=== PATIENT | female | born 1950 | race African-American/Black ===

== ENCOUNTER → 2016-05-25 | Outpatient (CLI) | payer MEDICARE, OTHER ==
--- NOTE | 2016-05-26 16:02 | SLEEP ---
DATE OF STUDY: 05/25/2016 ATTENDING PHYSICIAN: Frankie Stevens MD. The patient is 65 years old who weighs 280 pounds with a BMI of 52. The patient's [place] score was 11. A split night study was performed at [facility]. During the night of the study, the patient spent 421 minutes in bed and slept for 282 minutes with a sleep efficiency of 67%. Sleep latency was 72 minutes, which was prolonged with a REM latency of 115 minutes. Overall, sleep architecture showed normal stage I sleep, increased stage II sleep, normal slow wave and reduced REM sleep. During the initial diagnostic portion of the study, the patient slept for 120 minutes. During this time, there were 25 obstructive apneas, 1 mixed and no central apneas. There were 142 hypopneas. The patient's apnea-hypopnea index was 84 per hour with a REM index of 71 per hour. Supine sleep was not seen during the diagnostic portion. Review of nocturnal oximetry study revealed a mean oxygen saturation 90% with the lowest of 65%. 41% of time oxygen saturation remained between 80% and 89%. EKG monitoring revealed normal sinus rhythm. Average heart rate was 86 beats per minute. PLMS were seen at index of 11 per hour and none caused EEG arousals. The patient met the criteria for CPAP initiation. It was started at 5 cm of water and titrated up to 18 cm of water. At the final pressure, the patient had 31 minutes of sleep. Supine sleep was seen throughout, but no REM sleep was observed. AHI was reduced to 0 per hour and oxygen saturation remained above 91%. The patient used a small-sized full face mask. IMPRESSION: 1. Severe sleep apnea-hypopnea syndrome with an AHI of 84 per hour. 2. Nocturnal hypoxia secondary to obstructive sleep apnea, but resolved with CPAP. 3. Mild PLMS without any significant EEG arousals. This does not need to be treated. RECOMMENDATIONS: 1. CPAP at 18 cm of water completely eliminated patient's sleep apnea and should be used on a nightly basis. The patient used a small-sized full face mask. 2. Follow up in 4-6 weeks to assess compliance with CPAP and to document clinical improvement. 3. Weight loss is strongly advised. 4. Avoid SET PAINTER depressants. 5. Caution regarding driving until symptoms of sleep apnea resolve with the use of CPAP. HEIDI ORANTES MD DR: MARIA TERESA/yeni JOB#: [id number] / [id number] RFANKIE Savage MD
== END | disposition home or self-care (01) ==
LOC: SLPLAB 18:30
PROVIDERS: ATTEND Family Medicine
DX: G47.30 Sleep apnea, unspecified (principal)
CPT/HCPCS: 95810

== ENCOUNTER 2016-12-05 23:16 | Emergency (ER) | payer BC, OTHER ==
[~2016-12-05] VITALS: Ht 157.5 cm; Wt 117.5 kg
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
[2016-12-06] MEDS: IBUPROFEN 400 MG TABLET. PO ONE (00:07)
[2016-12-06] MEDS: HYDROcodone/APAP 5/325MG 1 TAB TABLET PO ONE (00:08)
[2016-12-06] MEDS ORDERED: IBUP-1027 PO (01:26)
[2016-12-06] MEDS ORDERED: ACET1TAB33 PO (01:26)
[2016-12-06 01:30] VITALS: BP 211/86
--- NOTE | 2016-12-06 07:09 | RAD ---
Right shoulder, 3 views, 12/06/2016: History: Shoulder pain, injury No fracture or dislocation is identified. There is moderate degenerative change at the shoulder with narrowing of the subacromial space. Minimal tendinous type calcification is noted along the margin of the greater tuberosity. IMPRESSION: 1. Moderate degenerative change. 2. No acute bony abnormality is detected.
--- NOTE | 2016-12-06 07:10 | RAD ---
Pelvis with right hip, 3 views, 12/06/2016: History: Injury, pain No fracture or dislocation is identified. There is mild narrowing of the hip joints with mild marginal spurring. A 5 cm coarse pelvic calcification on the left is compatible with a uterine fibroid. IMPRESSION: No acute bony abnormality is detected.
== END 2016-12-06 01:32 | disposition home or self-care (01) ==
LOC: ER 23:16
DX: S49.91XA Unspecified injury of right shoulder and upper arm, initial encounter (principal); S79.911A Unspecified injury of right hip, initial encounter; Z88.0 Allergy status to penicillin; X58.XXXA Exposure to other specified factors, initial encounter; Y93.89 Activity, other specified; Y92.89 Other specified places as the place of occurrence of the external cause; Y99.8 Other external cause status
CPT/HCPCS: 73030; 73502; 99284

== ENCOUNTER → 2017-03-22 | Day surgery (SDC) | payer BC ==
[~2017-03-22] MED LIST: HYDROmorphone 2 MG/ML VIAL IV; LIDOCAINE 1% PF 2 ML VIAL. ID; LIDOCAINE 2% PF Vial for OR 5 ML VIAL.; MORPHINE SULFATE 2 MG/ML DISP.SYRIN. IV; ONDANSETRON PF 4 MG/2 ML VIAL. IV; PROCHLORPERAZINE 10 MG/2 ML VIAL. IV; PROPOFOL 40 ML IV; fentaNYL PF VIAL 100 MCG/2 ML VIAL IV
[2017-03-22] MEDS: IV RINGERS,LACTATED 1000ML 1,000 ML IV (08:35)
[2017-03-22 08:50] LABS: POC GLUCOSE 133 mg/dL (70-99)
== END | disposition home or self-care (01) ==
LOC: ENDOS 07:52
DX: K57.30 Diverticulosis of large intestine without perforation or abscess without bleeding (principal); K64.1 Second degree hemorrhoids; I10 Essential (primary) hypertension; E11.9 Type 2 diabetes mellitus without complications; E78.5 Hyperlipidemia, unspecified; D64.9 Anemia, unspecified; Z88.0 Allergy status to penicillin; Z83.3 Family history of diabetes mellitus; Z79.84 Long term (current) use of oral hypoglycemic drugs; Z79.899 Other long term (current) drug therapy; Z82.49 Family history of ischemic heart disease and other diseases of the circulatory system
CPT/HCPCS: 45378; 82962; J2704

== ENCOUNTER → 2017-08-08 | Outpatient (CLI) | payer BC | END | disposition home or self-care (01) | LOC: KCIC DEXA 12:59 | DX: Z12.31 Encounter for screening mammogram for malignant neoplasm of breast (principal); Z13.820 Encounter for screening for osteoporosis; E11.9 Type 2 diabetes mellitus without complications; M81.0 Age-related osteoporosis without current pathological fracture; Z78.0 Asymptomatic menopausal state | CPT/HCPCS: 77063; 77067; 77080 ==

== ENCOUNTER → 2018-04-13 | Outpatient (CLI) | payer BC ==
[2018-03-22 11:00] VITALS: BP 166/79
[~2018-04-13] MED LIST changes: +ACET1TAB33 PO; +AZIT250T6 PO; +BENZ100C PO; +EZET10TA18 PO; +FURO40TA4 PO; +GABA300C18 PO; +HYDR-2761 PO; -HYDROmorphone 2 MG/ML VIAL IV; +IBUP-1027 PO; +LEVO500T59 PO; -LIDOCAINE 1% PF 2 ML VIAL. ID; -LIDOCAINE 2% PF Vial for OR 5 ML VIAL.; +LISI-130 PO; +LISI-334 PO; +METF500T16 PO; -MORPHINE SULFATE 2 MG/ML DISP.SYRIN. IV; -ONDANSETRON PF 4 MG/2 ML VIAL. IV; +PRED20TA PO; -PROCHLORPERAZINE 10 MG/2 ML VIAL. IV; -PROPOFOL 40 ML IV; +SIMV40TA3 PO; -fentaNYL PF VIAL 100 MCG/2 ML VIAL IV
--- NOTE | 2018-04-13 13:14 | RAD ---
Examination: CHEST PA LATERAL History: F/U TO PNEUMONIA, PT STILL WHEEZING, Comparison/Correlation: 03/19/2018, 03/21/2018 two-view chest x-ray exam Findings: PA and lateral views of chest were obtained. Heart size is within normal limits. Pulmonary vasculature is borderline. No focal infiltrate. No pneumothorax. Discoid atelectasis at the left lower lung field noted. No definite effusion. Impression: Borderline pulmonary vasculature congestion. No focal infiltrate. Resolution of previously identified right upper lobe consolidation on 03/24/2013. Electronically signed by: Rosalio Jimenez MD (04/13/2018 1:09 PM) [facility]
== END | disposition home or self-care (01) ==
LOC: RAD 09:48
PROVIDERS: ATTEND Internal Medicine
DX: J18.9 Pneumonia, unspecified organism (principal); Z88.0 Allergy status to penicillin; Z87.891 Personal history of nicotine dependence
CPT/HCPCS: 71046

== ENCOUNTER 2021-04-30 17:32 | Inpatient (IN) | payer BC ==
[~2021-04-30] VITALS: Ht 157.5 cm; Wt 107.4 kg
[~2021-04-30 17:32] MED LIST changes: -EZET10TA18 PO; +EZET10TA20 PO; -LISI-334 PO; +LISI20TA18 PO; +SIMV40TA18 PO; -SIMV40TA3 PO
--- NOTE | 2021-04-30 18:13 | PHYS DOC ---
Past Medical History Past Medical History: Diabetes-Type II, Hypertension Past Surgical History: Knee Replacement Additional Past Surgical Histo: BILATERAL KNEE REPLACEMENT Smoking Status: Former Smoker Alcohol Use: None Drug Use: None General Adult EDM: Chief Complaint: WEAKNESS/GENERALIZED HPI: HPI: Patient is a 70 year old female who presents with just over 24 hours of generalized weakness, generalized fatigue, malaise, bilateral lower extremity cramping. She has chronic lower extremity swelling, which is unchanged today. She denies any acute trauma, fall or injury. She has chronic back pain, but denies any back injury. She has numbness, tingling or focal motor weakness. She denies urinary symptoms, she denies incontinence. She denies abdominal pain. She denies headache, dizziness, vertigo. She denies fevers or chills. She denies chest pain, cough, dyspnea, palpitations. She lives alone, but her son helps her frequently, and she reports that she usually ambulates with a walker, but she is unable to do this today. Patient is unable to ambulate on her own, is unable to bear weight on her own. She does take diuretics. She does not take her supplemental potassium like she is supposed to because she does not like the pills. Review of Systems: Review of Systems: Constitutional: Denies fever or chills. [] Eyes: Denies change in visual acuity. [] HENT: Denies nasal congestion or sore throat. [] Respiratory: Denies cough or shortness of breath. [] Cardiovascular: Denies chest pain. Chronic lower extremity edema, unchanged. GI: Denies abdominal pain, nausea, vomiting, diarrhea : Denies urinary symptoms, denies incontinence. Musculoskeletal: Denies back pain or joint pain. Generalized muscle aches/myalgias Integument: Denies rash. [] Neurologic: Denies headache, focal weakness or sensory changes. Dizziness, vertigo, syncope. Reports generalized, nonfocal weakness. Endocrine: Denies polyuria or polydipsia. [] Lymphatic: Denies swollen glands. [] Psychiatric: Denies depression or anxiety. [] Heart Score: C/O Chest Pain: No Risk Factors: Risk Factors: DM, Current or recent (<one month) smoker, HTN, HLP, family history of CAD, obesity. Risk Scores: Score 0 - 3: 2.5% MACE over next 6 weeks - Discharge Home Score 4 - 6: 20.3% MACE over next 6 weeks - Admit for Clinical Observation Score 7 - 10: 72.7% MACE over next 6 weeks - Early Invasive Strategies Allergies: Allergies: Allergies Coded Allergies Type Severity Reaction Last Updated Verified Penicillins Allergy Intermediate 03/17/17 Yes Physical Exam: PE: Constitutional: Well developed, well nourished, no acute distress, non-toxic appearance. [] HENT: Normocephalic, atraumatic, oropharynx is patent and clear, mucous members are moist. TMs are clear bilaterally. Nares are patent without rhinorrhea epistaxis. Eyes: PERRL, EOMI, conjunctiva normal, no discharge. No nystagmus. Neck: Normal range of motion, no tenderness, supple, no stridor. Achy midline, no JVD. Cardiovascular:Heart rate regular rhythm, 2 radial and +2 posterior tibial pulses bilaterally, warm and well-perfused. Lungs & Thorax: Bilateral breath sounds clear to auscultation, no rales, rhonchi or wheezes Abdomen: Abdomen is soft, obese, nondistended, nontender to palpation, no CVA tenderness, no flank abdominal ecchymoses, no palpable pulsatile mass Skin: Warm, dry, no erythema, no rash. [] Back: No tenderness, no CVA tenderness. [] Extremities: No tenderness, no cyanosis, no clubbing, ROM intact, bilateral, symmetric 1+ lower extremity pitting edema. No calf tenderness. No warmth erythema. No deformity. 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 She is able to plantar flex and dorsiflex. Sensation is grossly intact. No evidence of limb ataxia. She is unable to ambulate. Psychologic: Affect normal, judgement normal, mood normal. She is pleasant and cooperative EKG: EKG: EKG is interpreted at 1816 Rhythm is sinus Rate is 83 bpm Fults is left No STEMI Radiology/Procedures: Radiology/Procedures: IMAGING REPORT Signed PATIENT: LI LYLES ACCOUNT: [id number] : 1950 LOCATION: ER AGE: 70 SEX: F EXAM STATUS: PRE ER ORD. PHYSICIAN: OTTO MENSAH DO REASON: weakness PROCEDURE: CT HEAD WO CONTRAST Exam Date: 04/30/2021 7:[address] HEAD/BRAIN WO Indication: Reason: weakness / Spl. Instructions: / History: . TECHNIQUE: Head CT was performed without intravenous contrast. One or more of the following dose reduction techniques were utilized: *Automated exposure control (AEC) *Adjustment of mA and/or kV according to patient size *Use of iterative reconstruction technique *CT scan done according to ALARA, or ALARA/IMAGE GENTLY FINDINGS: The ventricles and sulci are prominent consistent with cerebral volume loss. Patchy ill-defined low attenuation areas in the subcortical and periventricular white matter bilaterally are consistent with microvascular disease. There is no evidence of acute intracranial hemorrhage, extra-axial collection, mass effect, midline shift, or acute territorial infarct. No lesion of the skull base or the calvarium is seen. The visualized paranasal sinuses, mastoid air cells and orbits are normal in appearance. IMPRESSION: No evidence for acute intracranial abnormality. Volume loss and microvascular disease. Electronically signed by: Shanita Cruz MD (04/30/2021 7:39 PM) [facility] DICTATED and SIGNED BY: SHANITA CRUZ MD DATE: 04/30/21 [id number] Course & Med Decision Making: Course & Med Decision Making Pertinent Labs and Imaging studies reviewed. (See chart for details) The patient is given IV magnesium and p.o. potassium replacement. I discussed the findings, differential diagnosis and plan of care with the patient. Imaging studies are unremarkable for acute life-threatening pathology. I do suspect that electrolyte disturbance may partially explain the etiology of her symptoms. She is unable to walk, she is not able to go home. I recommended hospitalization, she is comfortable with this plan. She is excepted by her primary care physician, Dr. Alvarado. Swapna Disclaimer: Swapna Disclaimer: This electronic medical record was generated, in whole or in part, using a voice recognition dictation system. Departure Departure Impression: Primary Impression: Generalized weakness Additional Impressions: Hypokalemia Hypomagnesemia Unable to ambulate Disposition: ADMITTED INPATIENT Admitting Physician: Khang Alvarado Condition: GUARDED Referrals: KHANG ALVARADO MD (PCP) OTTO MENSAH DO Apr 30, 2021 18:13
[2021-04-30 18:53] LABS: BASO # 0.1 x10^3/uL (0.0-0.2); BASO % 1 % (0-3); EOS # 0.1 x10^3/uL (0.0-0.7); EOS % 2 % (0-3); HEMATOCRIT 36.6 % (36.0-47.0); HEMOGLOBIN 11.5 g/dL (12.0-15.5); LYMPH # 0.9 x10^3/uL (1.0-4.8); LYMPH % 13 % (24-48); MEAN CORPUSCULAR HEMOGLOBIN 25 pg (25-35); MEAN CORPUSCULAR HGB CONC 31 g/dL (31-37); MEAN CORPUSCULAR VOLUME 79 fL (79-100); MONO # 0.8 x10^3/uL (0.0-1.1); MONO % 12 % (0-9); NEUT % 73 % (31-73); PLATELET COUNT 269 x10^3/uL (140-400); RED BLOOD COUNT 4.61 x10^6/uL (3.50-5.40); RED CELL DISTRIBUTION WIDTH 15.8 % (11.5-14.5); WHITE BLOOD COUNT 6.9 x10^3/uL (4.0-11.0)
[2021-04-30 19:06] LABS: CALCIUM 9.3 mg/dL (8.5-10.1); CREATININE 0.9 mg/dL (0.6-1.0); GFR 74.5
[2021-04-30 19:12] LABS: ALBUMIN 3.2 g/dL (3.4-5.0); ALBUMIN/GLOBULIN RATIO 0.6 (1.0-1.7); MAGNESIUM 1.4 mg/dL (1.8-2.4); PHOSPHORUS 3.6 mg/dL (2.6-4.7); TOTAL BILIRUBIN 0.5 mg/dL (0.2-1.0); TOTAL PROTEIN 8.4 g/dL (6.4-8.2)
--- NOTE | 2021-04-30 19:41 | RAD ---
Exam Date: 04/30/2021 7:[address] HEAD/BRAIN WO Indication: Reason: weakness / Spl. Instructions: / History: . TECHNIQUE: Head CT was performed without intravenous contrast. One or more of the following dose re duction techniques were utilized: *Automated exposure control (AEC) *Adjustment of mA and/or kV according to patient size *Use of iterative reconstruction technique *CT scan done according to ALARA, or ALARA/IMAGE GENTLY FINDINGS: The ventricles and sulci are prominent consistent with cerebral volume loss. Patchy ill-defined low attenuation areas in the subcortical and periventricular white matter bilaterally are consistent with microvascular disease. There is no evidence of acute intracranial hemorrhage, extra-axial collecti on, mass effect, midline shift, or acute territorial infarct. No lesion of the skull base or the calv arium is seen. The visualized paranasal sinuses, mastoid air cells and orbits are normal in appearanc e. IMPRESSION: No evidence for acute intracranial abnormality. Volume loss and microvascular disease. Electronically signed by: Parth Cruz MD (04/30/2021 7:39 PM) [facility]
--- NOTE | 2021-04-30 20:18 | RAD ---
Exam Date: 04/30/2021 6:26 PM XR CHEST 1V Indication: Reason: weakness / Spl. Instructions: / History: . Comparison: April 13, 2018 FINDINGS/ IMPRESSION: The cardiac silhouette is enlarged without significant congestion. Mild left basilar subsegmental at electasis and/or scarring is noted. There is no appreciable pleural effusion or pneumothorax. Electronically signed by: Parth Cruz MD (04/30/2021 8:15 PM) [facility]
[2021-04-30 20:26] LABS: BILIRUBIN,URINE NEGATIVE (NEG); CLARITY,URINE CLEAR; COLOR,URINE YELLOW; NITRITE,URINE NEGATIVE (NEG); PH,URINE 5.5 (<5.0-8.0); PROTEIN,URINE 100 mg/dL (NEG-TRACE); UROBILINOGEN,URINE 0.2 mg/dL (0.2 mg/dL)
[2021-04-30 20:27] LABS: BACTERIA,URINE FEW /HPF (0-FEW); RBC,URINE 0 /HPF (0-2); WBC,URINE 0 /HPF (0-4)
[2021-04-30] MEDS ORDERED: POTASSIUM CHLORIDE 20 MEQ TABLET.ER. PO ONE (20:30)
[2021-04-30] MEDS ORDERED: MAGNESIUM SULFATE 1GM 100 ML IV ONE (20:30)
[2021-04-30] MEDS ORDERED: ONDANSETRON PF 4 MG/2 ML VIAL. IVP PRN (21:15)
[2021-04-30] MEDS ORDERED: POTASSIUM CL 20MEQ D5-0.45NACL 1,000 ML IV SCH (22:00)
[2021-04-30 22:14] LABS: INFLUENZA A PATIENT NEGATIVE (NEGATIVE); INFLUENZA B PATIENT NEGATIVE (NEGATIVE)
[2021-04-30 22:30] VITALS: BP 147/78
[2021-04-30] MEDS ORDERED: LOTE2.8D OU (22:53)
[2021-04-30] MEDS ORDERED: BROM5DRO3 OU (22:53)
[2021-04-30] MEDS ORDERED: MOXI3DRO11 OU (22:53)
[2021-04-30] MEDS ORDERED: TIZA-75 PO (22:53)
--- NOTE | 2021-04-30 23:32 | NUR ---
Patient arrived to unit at approx 2210 accompanied by ED RN. Patient resting comfortably on RA. Pt states that she has pain in her groin and bilateral legs when moving. Pt states "I have not been able to walk since yesterday night. Typically I dont even use a cane or walker, but i had to use one last night. I even had to slid down the stairs on my bottom". Pt reports living home alone, since her recently , has been under alot of stress. States that she has a two story home and needs to be able to get around. Her kids do live close but work during the day. Patient has received 3 doses of the Pfizer vaccine. Per patient has not been taking her "water pill" as directed because "I just get so tired of getting up and down to the bathroom all the time". Pt also states "I do not want a diabetic diet, i have type II diabetes so i should be able to eat what i want" Bed in low locked position, call light in reach, bed alarm set. Will continue to monitor.
[2021-05-01] VITALS (9 sets, daily range): BP systolic 75–199; BP diastolic 45–104
--- NOTE | 2021-05-01 01:38 | EKG ---
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
[2021-05-01 07:51] LABS: CALCIUM 8.9 mg/dL (8.5-10.1); CREATININE 0.8 mg/dL (0.6-1.0); GFR 85.3; MAGNESIUM 1.7 mg/dL (1.8-2.4); POTASSIUM 3.4 mmol/L (3.5-5.1)
[2021-05-01] MEDS ORDERED: HYDROcodone/APAP 5/325MG 1 TAB TABLET PO PRN (11:45)
[2021-05-01] MEDS ORDERED: IBUPROFEN 400 MG TABLET. PO PRN (11:45)
[2021-05-01] MEDS ORDERED: predniSONE 10 MG TABLET PO ONE (12:00)
[2021-05-01] MEDS ORDERED: IBUPROFEN 400 MG TABLET. PO ONE (12:00)
[2021-05-01] MEDS ORDERED: POTASSIUM CHLORIDE 20 MEQ TABLET.ER. PO ONE (12:00)
[2021-05-01] MEDS ORDERED: DEXTROSE 50% 25 GM / 50ML DISP.SYRIN. IV PRN (12:00)
[2021-05-01] MEDS: INSULIN LISPRO 300 UNITS/3 ML VIAL. SQ SCH ×2 (12:00→17:46)
--- NOTE | 2021-05-01 12:10 | PDOC ---
Provider Note Date of Service: DATE: 05/01/21 TIME: 12:09 Provider Note Pt seen .H&P dictated.#[id number]. Justifications for Admission Other Justification DIEGO ALVARADO MD May 01, 2021 12:10
[2021-05-01] MEDS: EZETIMIBE 10 MG TABLET. PO SCH (12:17)
[2021-05-01] MEDS: tiZANidine 4 MG TABLET. PO SCH ×2 (12:18→20:10)
[2021-05-01] MEDS: FUROSEMIDE 40 MG TABLET. PO SCH (12:18)
[2021-05-01] MEDS: MAGNESIUM OXIDE 400 MG TABLET PO SCH (12:18)
[2021-05-01] MEDS: LISINOPRIL 20 MG TABLET PO SCH (12:20)
--- NOTE | 2021-05-01 13:07 | HP ---
DATE OF SERVICE: 05/01/2021 ADMIT DATE: 04/30/2021 MEDICAL HISTORY AND PHYSICAL REASON FOR ADMISSION TO THE HOSPITAL: Severe pain, possible gout attack. HISTORY OF PRESENT ILLNESS: The patient is a 70-year-old female. The patient has had severe pain in the right foot, not able to ambulate. The pain was going all the way the leg into the back, she was hard to ambulate, was brought to the hospital and she was given pain medication. When she came in, her potassium was low at 3 and magnesium was low at 1.4, was given IV potassium and magnesium and numbers came down to 3.4 potassium and magnesium 1.7. She is much better now. PAST MEDICAL HISTORY: Diabetes, hypertension, arthritis, anxiety. PAST SURGICAL HISTORY: Bilateral knee replacement. ALLERGIES: PENICILLIN. MEDICATIONS: At home, the patient is on Zetia 10 mg daily, Lasix 40 mg daily, gabapentin 300 mg 3 times daily, lisinopril 40 mg daily, metformin 500 mg twice a day, tizanidine 4 mg daily. She is on eye drops for glaucoma, BromSite 1 drop both daily and moxifloxacin eye drop 3 times a day, right eye and also Inveltys eye drop twice a day. PERSONAL HISTORY: She is a former smoker. Denies alcohol. Denies any street drugs. REVIEW OF SYMPTOMS: Complains of pain in the foot. Hard to put weight on the foot or ambulate. Otherwise, she is able to ambulate with a cane. Rest of the 14-system was reviewed and negative. PHYSICAL EXAMINATION: GENERAL: The patient is slightly in distress secondary to pain; otherwise, she is okay. VITAL SIGNS: Temperature 98, pulse 93, respirations 20, blood pressure 226/113, now 167/88. HEENT: Head is atraumatic. Pupils equal. Oral cavity, no congestion. NECK: Supple. Thyroid not enlarged. JVD not elevated. CHEST: Symmetrical. CARDIOVASCULAR: S1, S2. LUNGS: Clear to auscultation. ABDOMEN: Soft, obese. No mass palpable. EXTERNAL GENITALIA: No Dangelo. RECTUM: Deferred. EXTREMITIES: Bilateral scars of knee replacement. The patient has tenderness of the MTP joint of the right big toe, some flare up with some redness. The patient has a good pulse, dorsalis and posterior. NEUROLOGIC: The patient is moving all extremities. No focal deficits noted. LABORATORY DATA: Shows a white count of 7, hemoglobin 12, platelets are 269. Electrolytes show sodium 147, potassium 3.0, chloride 103, bicarbonate 32, BUN 12, creatinine 0.9, glucose 109, magnesium 1.4. LFTs normal. Urine negative. Serology: Flu test negative. COVID screen negative. CT head negative. Chest x-ray negative. FINAL IMPRESSION: 1. Acute foot pain, probably secondary to acute gout. 2. Hypokalemia and hypomagnesemia. 3. Diabetes. 4. Hypertension. 5. Arthritis. 6. Obesity. PLAN: At this time, the patient is admitted to the hospital. Pain control was given, prednisone and Lortab for pain. Check uric acid level and also strongly recommended to cut down on the patient has been eating lot of red meat lately and counseling was done. She will be able to go home tomorrow if she feels her pain is under control. KLEVER/CIERA DR: Nam TID: [id number]
[2021-05-01] MEDS: GABAPENTIN 300 MG CAPSULE. PO SCH ×2 (15:13→20:10)
[2021-05-01] MEDS: KETOROLAC TROMETHAMINE 0.5% OPHTH SOLUTION 5ML BOTTLE. OU SCH ×3 (15:14→20:10)
[2021-05-01] MEDS: MOXIFLOXACIN 0.5% OPHTH SOLUTION 3ML BOTTLE. OU SCH ×2 (15:58→20:10)
[2021-05-01] MEDS ORDERED: IV NORMAL SALINE 500ML BAG 500 ML IV ONE (16:45)
[2021-05-01] MEDS: metFORMIN 500 MG TABLET PO SCH (17:43)
[2021-05-01] MEDS: LOTEPREDNOL ETABONATE OU SCH (20:14)
[2021-05-02 02:47] VITALS: BP 117/65
[2021-05-02 06:01] LABS: CALCIUM 8.7 mg/dL (8.5-10.1); CREATININE 1.1 mg/dL (0.6-1.0); GFR 59.1; POTASSIUM 4.3 mmol/L (3.5-5.1)
[2021-05-02 06:20] VITALS: BP 128/67
[2021-05-02] MEDS: INSULIN LISPRO 300 UNITS/3 ML VIAL. SQ SCH ×3 (08:00→17:07)
[2021-05-02] MEDS: MAGNESIUM OXIDE 400 MG TABLET PO SCH (08:18)
[2021-05-02] MEDS: GABAPENTIN 300 MG CAPSULE. PO SCH ×3 (08:19→21:08)
[2021-05-02] MEDS: metFORMIN 500 MG TABLET PO SCH ×2 (08:19→17:24)
[2021-05-02] MEDS: tiZANidine 4 MG TABLET. PO SCH (08:19)
[2021-05-02] MEDS: EZETIMIBE 10 MG TABLET. PO SCH (08:19)
[2021-05-02] MEDS: FUROSEMIDE 40 MG TABLET. PO SCH (08:19)
[2021-05-02] MEDS: LISINOPRIL 20 MG TABLET PO SCH ×2 (08:20→09:00)
[2021-05-02] MEDS: KETOROLAC TROMETHAMINE 0.5% OPHTH SOLUTION 5ML BOTTLE. OU SCH ×4 (08:27→21:08)
[2021-05-02] MEDS ORDERED: predniSONE 10 MG TABLET PO ONE (09:00)
[2021-05-02] MEDS: LOTEPREDNOL ETABONATE OU SCH ×2 (09:00→21:00)
[2021-05-02] MEDS ORDERED: POTASSIUM CHLORIDE 20 MEQ TABLET.ER. PO ONE (09:00)
--- NOTE | 2021-05-02 09:00 | NUR ---
Eye drop (inveltys) not given, not avaible in our pharmacy. Family hasn't brought the eye drops, informed on 05/01.
[2021-05-02] MEDS ORDERED: PRED20TA PO (09:38)
[2021-05-02] MEDS ORDERED: POTA-121 PO (09:38)
[2021-05-02] MEDS ORDERED: MAGN400T48 PO (09:38)
[2021-05-02] MEDS: MOXIFLOXACIN 0.5% OPHTH SOLUTION 3ML BOTTLE. OU SCH ×3 (10:40→21:08)
[2021-05-02] MEDS ORDERED: IV NORMAL SALINE 500ML BAG 500 ML IV ONE (10:45)
[2021-05-02] MEDS ORDERED: HYDR-2761 PO (10:48)
--- NOTE | 2021-05-02 10:50 | DISCH ---
DISCHARGE INSTRUCTIONS Condition on Discharge Condition on Discharge: Stable Activity After Discharge Activity Instructions for Disc: Activity as tolerated (Walk with walker) Weight Bearing Status after Di: No restrictions Diet after Discharge Diet after Discharge: Cardiac Diet Texture: Regular Liquid Texture: Thin Liquid Checks after Discharge Checks after discharge: Check blood press - daily, Check blood sugar, ac/hs Contacting the DRRuth after DC Call your doctor for: Concerns you may have Follow-Up Follow up with: in 5 days Treatment/Equipment after DC Adaptive Equipment Issued: None ZACH PEREZ MD May 02, 2021 10:50
--- NOTE | 2021-05-02 11:00 | PDOC ---
IM PROGRESS NOTES- Subjective Subjective She is very sleepy. Rt foot pain is improving. Has bradycardia with rates of 40 to 45/min. Blood pressure is 100/59 mmHg. Objective Vitals/I&O Vital Signs Date Time Temp Pulse Resp B/P (MAP) Pulse Ox O2 Delivery O2 Flow Rate FiO2 05/02/21 09:00 50 100/49 05/02/21 08:00 Room Air 05/02/21 06:20 97.3 16 99 97.3 I & O 05/01/21 05/01/21 05/02/21 15:00 23:00 07:00 Intake Total 360 ml 0 ml Output Total 800 ml 400 ml Balance -440 ml -400 ml Physical Exam Physical Exam General Appearance -she is very sleepy. Chest - decreased breath sounds at bases Heart - S1 and S2 normal Abdomen - soft, non tender Neurological -very sleepy Musculoskeletal - generalized weakness Extremities - no edema Labs Laboratory Tests Test 05/01/21 12:11 05/01/21 17:33 05/01/21 20:39 05/02/21 04:00 Glucose (Fingerstick) 102 mg/dL (70-99) H 161 mg/dL (70-99) H 175 mg/dL (70-99) H Sodium Level 146 mmol/L (136-145) H Potassium Level 4.3 mmol/L (3.5-5.1) Chloride Level 106 mmol/L (98-107) Carbon Dioxide Level 29 mmol/L (21-32) Anion Gap 11 (6-14) Blood Urea Nitrogen 20 mg/dL (7-20) Creatinine 1.1 mg/dL (0.6-1.0) H Estimated GFR (Cockcroft-Gault) 59.1 Glucose Level 159 mg/dL (70-99) H Calcium Level 8.7 mg/dL (8.5-10.1) Test 05/02/21 07:19 Glucose (Fingerstick) 115 mg/dL (70-99) H Laboratory Tests 05/02/21 04:00 Meds Current Medications Medications (Trade) Dose Ordered Sig/Florinda Route PRN Reason Start Time Stop Time Status Last Admin Dose Admin Prednisone (Prednisone) 50 mg 1X ONCE PO 05/01/21 12:00 05/01/21 12:01 DC 05/01/21 12:19 Prednisone (Prednisone) 30 mg 1X ONCE PO 05/02/21 09:00 05/02/21 09:01 DC 05/02/21 08:20 Ibuprofen (Motrin) 800 mg 1X ONCE PO 05/01/21 12:00 05/01/21 12:01 DC 05/01/21 12:19 Potassium Chloride (Klor-Con) 20 meq DAILY ONCE PO 05/02/21 09:00 05/02/21 09:01 DC 05/02/21 08:19 Magnesium Oxide (Magnesium Oxide) 400 mg DAILY PO 05/01/21 12:00 05/02/21 08:18 EZETIMIBE (Zetia) 10 mg DAILY PO 05/01/21 12:00 05/02/21 08:19 Furosemide (Lasix) 40 mg DAILY PO 05/01/21 12:00 05/02/21 08:19 Gabapentin (Neurontin) 300 mg TID PO 05/01/21 14:00 05/02/21 08:19 Lisinopril (Prinivil) 40 mg DAILY PO 05/01/21 12:00 05/01/21 12:20 Metformin HCl (Glucophage) 500 mg BIDWMEALS PO 05/01/21 17:00 05/02/21 08:19 Moxifloxacin HCl (Vigamox) 1 drop TID OU 05/01/21 14:00 05/02/21 10:40 Tizanidine HCl (Zanaflex) 4 mg BID PO 05/01/21 12:00 05/02/21 10:44 DC 05/02/21 08:19 Ketorolac Tromethamine (Acular) 1 drop QID OU 05/01/21 13:00 05/02/21 08:27 Potassium Chloride (Klor-Con) 40 meq 1X ONCE PO 05/01/21 12:00 05/01/21 12:01 DC 05/01/21 12:17 Insulin Human Lispro (HumaLOG) 0-5 UNITS TIDWMEALS SQ 05/01/21 12:00 05/01/21 17:46 Sodium Chloride 500 ml @ 500 mls/hr 1X ONCE IV 05/01/21 16:45 05/01/21 17:44 DC 05/01/21 16:43 Assessment Assessment 1. Acute foot pain, probably secondary to acute gout. 2. Hypokalemia and hypomagnesemia. 3. Diabetes. 4. Hypertension. 5. Arthritis. 6. Obesity. PLAN: At this time, the patient is admitted to the hospital. Pain control was given, prednisone and Lortab for pain. Check uric acid level and also strongly recommended to cut down on the patient has been eating lot of red meat lately and counseling was done. Acute gout improving.Continue prednisone 20 mg daily for 5 days for gout. I will send prescription for hydrocodone from our office computer. Bradycardia and hypotension. Multifactorial. She is also extremely sleepy and this is likely due to tizanidine. I will discontinue tizanidine. Because of the bradycardia and hypotension with blood pressure of 100/49 mmHg I will go ahead and give her 500 cc IV normal saline bolus. Sodium today is 146. Hypokalemia is resolved. Consult brine process operator for evaluation of bradycardia and hypotension. Discontinue lisinopril. It has not been given today. If patient is doing well later this evening and after cardiology evaluation and management will consider to discharge her if she is much better. Otherwise will wait till tomorrow and continue close monitoring. If she gets discharged she will see in 5 days. Discontinue tizanidine and lisinopril. Continue Lasix for now. Continue potassium and magnesium supplements. Plan Plan For more details regarding further plans, please refer to the orders. Justifications for Admission Other Justification ZACH PEREZ MD May 02, 2021 11:00
[2021-05-02 11:01] VITALS: BP 100/49
--- NOTE | 2021-05-02 13:01 | EKG ---
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
[2021-05-02 15:00] VITALS: BP 155/78
--- NOTE | 2021-05-02 17:29 | PDOC2 ---
CONSULT Date of Consult Date of Consult DATE: 05/02/21 TIME: 17:22 Reason for Consult Reason for Consult: Bradycardia Referring Physician Referring Physician: Dr. Brunson Identification/Chief Complaint Chief Complaint Weakness and fatigue Source Source: Chart review, Patient History of Present Illness Reason for Visit: The patient is a 70-year-old female who was admitted on the secondary to 1 to 2 days of increasing weakness and fatigue. The patient also reports some left lower extremity swelling and pain in her right foot. Her potassium level w as decreased at 3.0 which is since been replaced to 4.3. Her magnesium level was decreased at 1.4 which has been replaced to 1.7. Work-up has included CT scan of the head with no evidence of acute intracranial abnormalities. Her initial EKG showed a sinus rhythm with no acute ischemia. We have been asked to evaluate the patient for episodes of sinus bradycardia. Rate is now in the 40s. The patient has been having some 1.5 to 1.6-second pauses with episodes of sinus arrhythmias. She reports feeling significantly better than on admission with her weakness and fatigue greatly improved. In addition she has been on tizanidine and this has been held today. She reports no clear history of coronary disease, congestive heart failure or cardiac arrhythmias although she states that in the past she was seen at least once a [facility] by cardiology. Past Medical History Cardiovascular: HTN, Hyperlipidemia Pulmonary: Bronchitis Rheumatologic: Gout Endocrine: Diabetes Past Surgical History Past Surgical History: Total knee replacement Family History Family History: Hypertension Social History Quit ALCOHOL: none Current Problem List Problem List Problems Medical Problems: (1) Generalized weakness Status: Acute (2) Hypokalemia Status: Acute (3) Hypomagnesemia Status: Acute (4) Unable to ambulate Status: Acute (5) Weakness Status: Acute Current Medications Current Medications Current Medications Potassium Chloride (Klor-Con) 40 meq 1X ONCE PO Last administered on 04/30/21at 20:36; Start 04/30/21 at 20:30; Stop 04/30/21 at 20:31; Status DC Magnesium Sulfate/ Dextrose 100 ml @ 100 mls/hr 1X ONCE IV Last administered on 04/30/21at 20:36; Start 04/30/21 at 20:30; Stop 04/30/21 at 21:29; Status DC Ondansetron HCl (Zofran) 4 mg PRN Q8HRS PRN IVP NAUSEA/VOMITING; Start 04/30/21 at 21:15; Stop 05/01/21 at 21:14; Status DC Potassium Chloride/Dextrose/ Sod Cl 1,000 ml @ 75 mls/hr [id number] IV Last administered on 04/30/21at 22:46; Start 04/30/21 at 22:00; Stop 05/01/21 at 11:19; Status DC Prednisone (Prednisone) 50 mg 1X ONCE PO Last administered on 05/01/21at 12:19; Start 05/01/21 at 12:00; Stop 05/01/21 at 12:01; Status DC Prednisone (Prednisone) 30 mg 1X ONCE PO Last administered on 05/02/21at 08:20; Start 05/02/21 at 09:00; Stop 05/02/21 at 09:01; Status DC Acetaminophen/ Hydrocodone Bitart (Lortab 5/325) 1 tab PRN Q4HRS PRN PO PAIN; Start 05/01/21 at 11:45 Ibuprofen (Motrin) 800 mg 1X ONCE PO Last administered on 05/01/21at 12:19; Start 05/01/21 at 12:00; Stop 05/01/21 at 12:01; Status DC Ibuprofen (Motrin) 400 mg PRN BID PRN PO INFLAMMATION; Start 05/01/21 at 11:45 Potassium Chloride (Klor-Con) 20 meq DAILY ONCE PO Last administered on 05/02/21at 08:19; Start 05/02/21 at 09:00; Stop 05/02/21 at 09:01; Status DC Magnesium Oxide (Magnesium Oxide) 400 mg DAILY PO Last administered on 05/02/21at 08:18; Start 05/01/21 at 12:00 EZETIMIBE (Zetia) 10 mg DAILY PO Last administered on 05/02/21at 08:19; Start 05/01/21 at 12:00 Furosemide (Lasix) 40 mg DAILY PO Last administered on 05/02/21at 08:19; Start 05/01/21 at 12:00 Gabapentin (Neurontin) 300 mg TID PO Last administered on 05/02/21at 13:28; Start 05/01/21 at 14:00 Lisinopril (Prinivil) 40 mg DAILY PO Last administered on 05/01/21at 12:20; Start 05/01/21 at 12:00; Stop 05/02/21 at 11:02; Status DC Metformin HCl (Glucophage) 500 mg BIDWMEALS PO Last administered on 05/02/21at 08:19; Start 05/01/21 at 17:00 Moxifloxacin HCl (Vigamox) 1 drop TID OU Last administered on 05/02/21at 15:52; Start 05/01/21 at 14:00 Tizanidine HCl (Zanaflex) 4 mg BID PO Last administered on 05/02/21at 08:19; Start 05/01/21 at 12:00; Stop 05/02/21 at 10:44; Status DC Ketorolac Tromethamine (Acular) 1 drop QID OU Last administered on 05/02/21at 13:28; Start 05/01/21 at 13:00 Non-Formulary Medication (Loteprednol Etabonate (Inveltys)) 1 drop BID OU ; Start 05/01/21 at 21:00; Status UNV Potassium Chloride (Klor-Con) 40 meq 1X ONCE PO Last administered on 05/01/21at 12:17; Start 05/01/21 at 12:00; Stop 05/01/21 at 12:01; Status DC Insulin Human Lispro (HumaLOG) 0-5 UNITS TIDWMEALS SQ Last administered on 05/02/21at 17:07; Start 05/01/21 at 12:00 Dextrose (Dextrose 50%-Water Syringe) 12.5 gm PRN Q15MIN PRN IV SEE COMMENTS; Start 05/01/21 at 12:00 Sodium Chloride 500 ml @ 500 mls/hr 1X ONCE IV Last administered on 05/01/21at 16:43; Start 05/01/21 at 16:45; Stop 05/01/21 at 17:44; Status DC Sodium Chloride 500 ml @ 0 mls/hr 1X ONCE IV Last administered on 05/02/21at 11:02; Start 05/02/21 at 10:45; Stop 05/02/21 at 10:52; Status DC Active Scripts Active Hydrocodone-Apap 5-325 (Hydrocodone Bit/Acetaminophen) 1 Tab Tablet 1 Tab PO PRN Q6-8HRS PRN 7 Days Prednisone 20 Mg Tablet 1 Tab PO DAILY Klor-Con M20 (Potassium Chloride) 20 Meq Tab.er.prt 20 Meq PO DAILY 30 Days Magnesium Oxide 400 Mg Tablet 400 Mg PO DAILY 30 Days Reported Inveltys (Loteprednol Etabonate) 2.8 Ml Drops.susp 1 Drop OU BID Bromsite (Bromfenac Sodium) 5 Ml Drops 1 Drop OU DAILY Moxifloxacin (Moxifloxacin HCl) 3 Ml Drops 1 Drop OU TID Zetia (Ezetimibe) 10 Mg Tablet 1 Tab PO DAILY Gabapentin (Gabapentin) 300 Mg Capsule 300 Mg PO TID Furosemide 40 Mg Tablet 40 Mg PO DAILY Metformin Hcl 500 Mg Tablet 500 Mg PO BIDWMEALS Allergies Allergies: Coded Allergies: Penicillins (Verified Allergy, Intermediate, 03/17/17) ROS General: YES: Fatigue, Malaise Respiratory: YES: SOB with excertion Physical Exam General: Other (Fatigue but no distress.) Lungs: Other (Minimally decreased breath sounds) Heart: Regular rate Abdomen: Normal bowel sounds Vitals VITALS Vital Signs Date Time Temp Pulse Resp B/P (MAP) Pulse Ox O2 Delivery O2 Flow Rate FiO2 05/02/21 15:00 98.0 68 16 155/78 (103) 99 Room Air 98.0 Labs Labs Laboratory Tests Test 04/30/21 18:40 04/30/21 19:57 04/30/21 21:45 05/01/21 07:10 White Blood Count 6.9 x10^3/uL (4.0-11.0) Red Blood Count 4.61 x10^6/uL (3.50-5.40) Hemoglobin 11.5 g/dL (12.0-15.5) Hematocrit 36.6 % (36.0-47.0) Mean Corpuscular Volume 79 fL (79-100) Mean Corpuscular Hemoglobin 25 pg (25-35) Mean Corpuscular Hemoglobin Concent 31 g/dL (31-37) Red Cell Distribution Width 15.8 % (11.5-14.5) Platelet Count 269 x10^3/uL (140-400) Neutrophils (%) (Auto) 73 % (31-73) Lymphocytes (%) (Auto) 13 % (24-48) Monocytes (%) (Auto) 12 % (0-9) Eosinophils (%) (Auto) 2 % (0-3) Basophils (%) (Auto) 1 % (0-3) Neutrophils # (Auto) 5.0 x10^3/uL (1.8-7.7) Lymphocytes # (Auto) 0.9 x10^3/uL (1.0-4.8) Monocytes # (Auto) 0.8 x10^3/uL (0.0-1.1) Eosinophils # (Auto) 0.1 x10^3/uL (0.0-0.7) Basophils # (Auto) 0.1 x10^3/uL (0.0-0.2) Sodium Level 147 mmol/L (136-145) 144 mmol/L (136-145) Potassium Level 3.0 mmol/L (3.5-5.1) 3.4 mmol/L (3.5-5.1) Chloride Level 103 mmol/L (98-107) 103 mmol/L (98-107) Carbon Dioxide Level 32 mmol/L (21-32) 32 mmol/L (21-32) Anion Gap 12 (6-14) 9 (6-14) Blood Urea Nitrogen 12 mg/dL (7-20) 12 mg/dL (7-20) Creatinine 0.9 mg/dL (0.6-1.0) 0.8 mg/dL (0.6-1.0) Estimated GFR (Cockcroft-Gault) 74.5 85.3 BUN/Creatinine Ratio 13 (6-20) Glucose Level 103 mg/dL (70-99) 131 mg/dL (70-99) Calcium Level 9.3 mg/dL (8.5-10.1) 8.9 mg/dL (8.5-10.1) Phosphorus Level 3.6 mg/dL (2.6-4.7) Magnesium Level 1.4 mg/dL (1.8-2.4) 1.7 mg/dL (1.8-2.4) Total Bilirubin 0.5 mg/dL (0.2-1.0) Aspartate Amino Transf (AST/SGOT) 6 U/L (15-37) Alanine Aminotransferase (ALT/SGPT) 9 U/L (14-59) Alkaline Phosphatase 104 U/L (46-116) Creatine Kinase 58 U/L (26-192) Troponin I High Sensitivity 32 ng/L (4-50) ET-Ikb-U-Type Natriuretic Peptide 1741 pg/mL (0-124) Total Protein 8.4 g/dL (6.4-8.2) Albumin 3.2 g/dL (3.4-5.0) Albumin/Globulin Ratio 0.6 (1.0-1.7) Urine Collection Type U cath Urine Color Yellow Urine Clarity Clear Urine pH 5.5 (<5.0-8.0) Urine Specific [place] >=1.030 (1.000-1.030) Urine Protein 100 mg/dL (NEG-TRACE) Urine Glucose (UA) Negative mg/dL (NEG) Urine Ketones (Stick) Negative mg/dL (NEG) Urine Blood Negative (NEG) Urine Nitrite Negative (NEG) Urine Bilirubin Negative (NEG) Urine Urobilinogen Dipstick 0.2 mg/dL (0.2 mg/dL) Urine Leukocyte Esterase Negative (NEG) Urine RBC 0 /HPF (0-2) Urine WBC 0 /HPF (0-4) Urine Squamous Epithelial Cells Mod /LPF Urine Bacteria Few /HPF (0-FEW) Urine Mucus Mod /LPF Coronavirus (COVID-19)(PCR) Not detected (NOT DETECTD) Influenza Type A Antigen Negative (NEGATIVE) Influenza Type B Antigen Negative (NEGATIVE) SARS-CoV-2 Antigen (Rapid) Negative (NEGATIVE) Uric Acid 6.3 mg/dL (2.6-6.0) Test 05/01/21 12:11 05/01/21 17:33 05/01/21 20:39 05/02/21 04:00 Glucose (Fingerstick) 102 mg/dL (70-99) 161 mg/dL (70-99) 175 mg/dL (70-99) Sodium Level 146 mmol/L (136-145) Potassium Level 4.3 mmol/L (3.5-5.1) Chloride Level 106 mmol/L (98-107) Carbon Dioxide Level 29 mmol/L (21-32) Anion Gap 11 (6-14) Blood Urea Nitrogen 20 mg/dL (7-20) Creatinine 1.1 mg/dL (0.6-1.0) Estimated GFR (Cockcroft-Gault) 59.1 Glucose Level 159 mg/dL (70-99) Calcium Level 8.7 mg/dL (8.5-10.1) Test 05/02/21 07:19 2/27/22 11:28 05/02/21 16:46 Glucose (Fingerstick) 115 mg/dL (70-99) 138 mg/dL (70-99) 164 mg/dL (70-99) Laboratory Tests Test 05/01/21 17:33 05/01/21 20:39 05/02/21 04:00 05/02/21 07:19 Glucose (Fingerstick) 161 mg/dL (70-99) 175 mg/dL (70-99) 115 mg/dL (70-99) Sodium Level 146 mmol/L (136-145) Potassium Level 4.3 mmol/L (3.5-5.1) Chloride Level 106 mmol/L (98-107) Carbon Dioxide Level 29 mmol/L (21-32) Anion Gap 11 (6-14) Blood Urea Nitrogen 20 mg/dL (7-20) Creatinine 1.1 mg/dL (0.6-1.0) Estimated GFR (Cockcroft-Gault) 59.1 Glucose Level 159 mg/dL (70-99) Calcium Level 8.7 mg/dL (8.5-10.1) Test 05/02/21 11:28 05/02/21 16:46 Glucose (Fingerstick) 138 mg/dL (70-99) 164 mg/dL (70-99) Images Images CT scan of the head with no acute intracranial abnormalities. Assessment/Plan Assessment/Plan 1. Weakness and fatigue. Patient is significantly improved on present treatment. She is attempting to gradually increase her activity. 2. Right foot pain. Possibly gout with treatment as per the primary service. 3. Mild sinus bradycardia. Some episodes of sinus arrhythmias. Pauses up to approximately 1.2 seconds. Potassium magnesium have been replaced. Tizanidine has been held. In this setting I would monitor the patient overnight to exclude more significant bradycardia. Upon discharge tomorrow if he remained stable overnight we will place an outpatient monitor. 4. Hypokalemia. Replaced to a level of 4.3 today. 5. Hypomagnesemia. Replaced to a level of 1.7 today. 6. Hypertension. Patient is hypotensive today. Lisinopril is being held. 7. Diabetes mellitus. As per the primary physician. LOKESH HERRERA MD May 02, 2021 17:29
[2021-05-02 19:10] VITALS: BP 178/88
[2021-05-02 22:41] VITALS: BP 150/72
[2021-05-03 02:49] VITALS: BP 138/58
[2021-05-03 05:14] LABS: BASO % 0 % (0-3); EOS # 0.1 x10^3/uL (0.0-0.7); EOS % 1 % (0-3); HEMATOCRIT 34.3 % (36.0-47.0); HEMOGLOBIN 10.8 g/dL (12.0-15.5); LYMPH # 1.6 x10^3/uL (1.0-4.8); LYMPH % 17 % (24-48); MEAN CORPUSCULAR HEMOGLOBIN 25 pg (25-35); MEAN CORPUSCULAR HGB CONC 31 g/dL (31-37); MEAN CORPUSCULAR VOLUME 80 fL (79-100); MONO # 0.7 x10^3/uL (0.0-1.1); MONO % 8 % (0-9); NEUT # 6.8 x10^3/uL (1.8-7.7); NEUT % 74 % (31-73); PLATELET COUNT 277 x10^3/uL (140-400); RED BLOOD COUNT 4.29 x10^6/uL (3.50-5.40); RED CELL DISTRIBUTION WIDTH 15.8 % (11.5-14.5); WHITE BLOOD COUNT 9.1 x10^3/uL (4.0-11.0)
[2021-05-03 05:21] LABS: CALCIUM 8.9 mg/dL (8.5-10.1); CREATININE 0.9 mg/dL (0.6-1.0); GFR 74.5; POTASSIUM 3.8 mmol/L (3.5-5.1)
[2021-05-03 07:00] VITALS: BP 160/72
[2021-05-03] MEDS: INSULIN LISPRO 300 UNITS/3 ML VIAL. SQ SCH (08:00)
[2021-05-03] MEDS: metFORMIN 500 MG TABLET PO SCH (08:53)
[2021-05-03] MEDS: FUROSEMIDE 40 MG TABLET. PO SCH (08:54)
[2021-05-03] MEDS: MAGNESIUM OXIDE 400 MG TABLET PO SCH (08:54)
[2021-05-03] MEDS: EZETIMIBE 10 MG TABLET. PO SCH (08:54)
[2021-05-03] MEDS: GABAPENTIN 300 MG CAPSULE. PO SCH (08:54)
[2021-05-03] MEDS: LOTEPREDNOL ETABONATE OU SCH (08:55)
[2021-05-03] MEDS: KETOROLAC TROMETHAMINE 0.5% OPHTH SOLUTION 5ML BOTTLE. OU SCH (08:59)
[2021-05-03] MEDS: MOXIFLOXACIN 0.5% OPHTH SOLUTION 3ML BOTTLE. OU SCH (08:59)
--- NOTE | 2021-05-03 09:32 | PDOC ---
PROGRESS NOTES Date of Service: DATE: 05/03/21 TIME: 09:29 Subjective Subjective feels good ,want to go home now Objective Objective Vital Signs Date Time Temp Pulse Resp B/P (MAP) Pulse Ox O2 Delivery O2 Flow Rate FiO2 05/03/21 07:00 97.2 61 20 160/72 (101) 98 Room Air 97.2 Intake and Output 05/03/21 07:00 Intake Total 860 ml Output Total 700 ml Balance 160 ml Intake Oral 860 ml Output Urine Total 700 ml # Bowel Movements 1 Physical Exam Abdomen: Normal bowel sounds Heart: Regular rate General: Oriented X3, Other (Fatigue but no distress.) Lungs: Clear to auscultation MUSCULOSKELETAL: No deformity Neuro: Normal speech Psych/Mental Status: Mental status NL Skin: No rashes Diagnosis Problem List Problems Medical Problems: (1) Generalized weakness Status: Acute (2) Hypokalemia Status: Acute (3) Hypomagnesemia Status: Acute (4) Unable to ambulate Status: Acute (5) Weakness Status: Acute Assessment Assessment 1. Acute foot pain, probably secondary to acute gout. 2. Hypokalemia and hypomagnesemia. 3. Diabetes. 4. Hypertension. 5. Arthritis. 6. Obesity. PLAN: bradycardia resolved may be due to medications, Tizanidine , spoke with cardiology ,ok to go home , will do out pt ho;ter monitor gout attack resolved home today.. labs good. Plan Plan of Care Problems Medical Problems: (1) Generalized weakness Status: Acute (2) Hypokalemia Status: Acute (3) Hypomagnesemia Status: Acute (4) Unable to ambulate Status: Acute (5) Weakness Status: Acute Comment Review of Relevant I have reviewed the following items lyssa (where applicable) has been applied. Labs Laboratory Tests Test 05/02/21 11:28 05/02/21 16:46 05/02/21 20:57 05/03/21 03:40 Glucose (Fingerstick) 138 mg/dL (70-99) 164 mg/dL (70-99) 95 mg/dL (70-99) White Blood Count 9.1 x10^3/uL (4.0-11.0) Red Blood Count 4.29 x10^6/uL (3.50-5.40) Hemoglobin 10.8 g/dL (12.0-15.5) Hematocrit 34.3 % (36.0-47.0) Mean Corpuscular Volume 80 fL (79-100) Mean Corpuscular Hemoglobin 25 pg (25-35) Mean Corpuscular Hemoglobin Concent 31 g/dL (31-37) Red Cell Distribution Width 15.8 % (11.5-14.5) Platelet Count 277 x10^3/uL (140-400) Neutrophils (%) (Auto) 74 % (31-73) Lymphocytes (%) (Auto) 17 % (24-48) Monocytes (%) (Auto) 8 % (0-9) Eosinophils (%) (Auto) 1 % (0-3) Basophils (%) (Auto) 0 % (0-3) Neutrophils # (Auto) 6.8 x10^3/uL (1.8-7.7) Lymphocytes # (Auto) 1.6 x10^3/uL (1.0-4.8) Monocytes # (Auto) 0.7 x10^3/uL (0.0-1.1) Eosinophils # (Auto) 0.1 x10^3/uL (0.0-0.7) Basophils # (Auto) 0.0 x10^3/uL (0.0-0.2) Sodium Level 143 mmol/L (136-145) Potassium Level 3.8 mmol/L (3.5-5.1) Chloride Level 106 mmol/L (98-107) Carbon Dioxide Level 31 mmol/L (21-32) Anion Gap 6 (6-14) Blood Urea Nitrogen 23 mg/dL (7-20) Creatinine 0.9 mg/dL (0.6-1.0) Estimated GFR (Cockcroft-Gault) 74.5 Glucose Level 109 mg/dL (70-99) Calcium Level 8.9 mg/dL (8.5-10.1) Thyroid Stimulating Hormone (TSH) 0.184 uIU/mL (0.358-3.74) Test 05/03/21 07:37 Glucose (Fingerstick) 105 mg/dL (70-99) Medications Current Medications Sodium Chloride 500 ml @ 0 mls/hr 1X ONCE IV Last administered on 05/02/21at 11:02; Start 05/02/21 at 10:45; Stop 05/02/21 at 10:52; Status DC Vitals/I & O Vital Sign - Last 24 Hours 05/02/21 05/02/21 05/02/21 05/02/21 11:01 15:00 19:10 19:37 Temp 97.4 98.0 97.5 97.4 98.0 97.5 Pulse 50 68 68 Resp 16 16 18 B/P (MAP) 100/49 (66) 155/78 (103) 178/88 (118) Pulse Ox 94 99 99 O2 Delivery Room Air Room Air Room Air Room Air 05/02/21 05/03/21 05/03/21 22:41 02:49 07:00 Temp 97.5 97.5 97.2 97.5 97.5 97.2 Pulse 70 74 61 Resp 16 16 20 B/P (MAP) 150/72 (98) 138/58 (84) 160/72 (101) Pulse Ox 98 100 98 O2 Delivery Room Air Room Air Room Air Intake and Output 05/02/21 05/02/21 05/03/21 15:00 23:00 07:00 Intake Total 360 ml 500 ml 0 ml Output Total 200 ml 500 ml Balance 160 ml 0 ml 0 ml Justifications for Admission Other Justification DIEGO ALVARADO MD May 03, 2021 09:32
--- NOTE | 2021-05-03 10:40 | PDOC ---
LAURI BARGER GENERAL EDUCATION PROFESSOR 05/03/21 1040: CARDIO Progress Notes Date and Time Date of Service 05/03/21 Time of Evaluation 1030 Subjective Subjective: No Chest Pain, No shortness of breath, No Palpitations, No Dizziness, Other (ready to be discharged ) Vitals Vitals Vital Signs Date Time Temp Pulse Resp B/P (MAP) Pulse Ox O2 Delivery O2 Flow Rate FiO2 05/03/21 07:00 97.2 61 20 160/72 (101) 98 Room Air 97.2 Weight Weight [ ] Input and Output Intake and Output Intake and Output 05/03/21 07:00 Intake Total 860 ml Output Total 700 ml Balance 160 ml Intake Oral 860 ml Output Urine Total 700 ml # Bowel Movements 1 Laboratory Labs Laboratory Tests Test 05/02/21 11:28 05/02/21 16:46 05/02/21 20:57 05/03/21 03:40 Glucose (Fingerstick) 138 mg/dL (70-99) 164 mg/dL (70-99) 95 mg/dL (70-99) White Blood Count 9.1 x10^3/uL (4.0-11.0) Red Blood Count 4.29 x10^6/uL (3.50-5.40) Hemoglobin 10.8 g/dL (12.0-15.5) Hematocrit 34.3 % (36.0-47.0) Mean Corpuscular Volume 80 fL (79-100) Mean Corpuscular Hemoglobin 25 pg (25-35) Mean Corpuscular Hemoglobin Concent 31 g/dL (31-37) Red Cell Distribution Width 15.8 % (11.5-14.5) Platelet Count 277 x10^3/uL (140-400) Neutrophils (%) (Auto) 74 % (31-73) Lymphocytes (%) (Auto) 17 % (24-48) Monocytes (%) (Auto) 8 % (0-9) Eosinophils (%) (Auto) 1 % (0-3) Basophils (%) (Auto) 0 % (0-3) Neutrophils # (Auto) 6.8 x10^3/uL (1.8-7.7) Lymphocytes # (Auto) 1.6 x10^3/uL (1.0-4.8) Monocytes # (Auto) 0.7 x10^3/uL (0.0-1.1) Eosinophils # (Auto) 0.1 x10^3/uL (0.0-0.7) Basophils # (Auto) 0.0 x10^3/uL (0.0-0.2) Sodium Level 143 mmol/L (136-145) Potassium Level 3.8 mmol/L (3.5-5.1) Chloride Level 106 mmol/L (98-107) Carbon Dioxide Level 31 mmol/L (21-32) Anion Gap 6 (6-14) Blood Urea Nitrogen 23 mg/dL (7-20) Creatinine 0.9 mg/dL (0.6-1.0) Estimated GFR (Cockcroft-Gault) 74.5 Glucose Level 109 mg/dL (70-99) Calcium Level 8.9 mg/dL (8.5-10.1) Thyroid Stimulating Hormone (TSH) 0.184 uIU/mL (0.358-3.74) Test 05/03/21 07:37 Glucose (Fingerstick) 105 mg/dL (70-99) Physical Exam HEENT: Neck Supple W Full Motion Chest: Symmetric LUNGS: Clear to Auscultation Heart: RRR Abdomen: Soft N/T Extremities: Other (trace bilateral LE edema ) Neurology: alert, oriented, follow commands Assessment Assessment 1. Weakness, right foot pain. Treated as gout 2. Bradycardia; sinus. Lowest 41 overnight. No pauses. Tizanidine has been held. Improved. Tele also noted with few brief bursts of PSVT. Otherwise, is SR.. 3. Hypokalemia, hypomagnesemia; replaced 4. Hypertension; lisinopril held with low-end BP. no hypertensive. 5. Diabetes, II Recommendations Resume lisinopril at lower dose. Outpatient event monitor as arranged Outpatient echocardiogram to assess LV systolic function Follow up in our office with Dr. Herrera as scheduled. Justicifation of Admission Dx: Justifications for Admission: Justification of Admission Dx: Yes Comments: bradycardia Weakness Hypotension LOKESH HERRERA MD 05/04/21 1104: CARDIO Progress Notes Assessment Assessment Patient seen and examined on 05/03/2021. She is feeling better. I agree with our nurse practitioners assessment and plan. Weakness, right foot pain. Treated as gout Bradycardia; sinus. Lowest 41 overnight. No pauses. Tizanidine has been held. Improved. Tele also noted with few brief bursts of PSVT. Otherwise, is SR. We will continue present medications and follow-up as an outpatient.. Hypokalemia, hypomagnesemia; replaced Hypertension; lower dose lisinopril. Diabetes, II. as per the primary service. LAURI BARGER APRN May 03, 2021 10:40 LOKESH HERRERA MD May 04, 2021 11:04
[2021-05-03] MEDS ORDERED: LISI20TA18 PO (12:21)
--- NOTE | 2021-05-03 12:31 | NUR ---
SS following for discharge planning. SS reviewed pt chart and discussed with pt RN. Pt is from home and is currently on room air. COVID19 negative. PT/OT recommended residential unit. Pt requesting to return to home. Discharge order on the chart for home with self care.
--- NOTE | 2021-05-03 12:40 | NUR ---
Discharge Note: FREEMAN LYLES [address] [place] [address] Discharge instructions and discharge home medications reviewed with Patient and a copy given. All questions have been answered and understanding verbalized. The following instructions and handouts were given: discharge instructions, med list, hypokalemia education, hypomagnesemia education, bradycardia education, follow ups. Discontinued lines and drains: Peripheral IV intact. Patient discharged to Home or Self Care with Family Member via Wheelchair at 1240.
== END 2021-05-03 12:36 | disposition home or self-care (01) | DRG 554 ==
LOC: ER 17:32 → 6 SOUTH 20:18
PROVIDERS: ADMIT Internal Medicine; ATTEND Internal Medicine
DX: M10.9 Gout, unspecified (principal); Z68.41 Body mass index [BMI] 40.0-44.9, adult; I47.1 Supraventricular tachycardia; E87.6 Hypokalemia; Z20.822 Contact with and (suspected) exposure to COVID-19; E11.9 Type 2 diabetes mellitus without complications; E66.9 Obesity, unspecified; E78.5 Hyperlipidemia, unspecified; E83.42 Hypomagnesemia; G89.29 Other chronic pain; I10 Essential (primary) hypertension; Z96.653 Presence of artificial knee joint, bilateral; F41.9 Anxiety disorder, unspecified; R53.81 Other malaise; I95.9 Hypotension, unspecified; M54.9 Dorsalgia, unspecified; M79.671 Pain in right foot; I49.8 Other specified cardiac arrhythmias; Z88.0 Allergy status to penicillin; Z82.49 Family history of ischemic heart disease and other diseases of the circulatory system; Z87.891 Personal history of nicotine dependence
CPT/HCPCS: 36415; 70450; 71045; 80048; 80053; 81001; 82550; 82962; 83735; 83880; 84100; 84443; 84484; 84550; 85025; 87428; 93005; 96365; J1815; J3475; J3480; J7040; J7512; U0003; 97116-GP; 97535-GO; 99285-25; G0378

== ENCOUNTER → 2021-05-31 | Outpatient (CLI) | payer BC ==
[2021-05-03 07:00] VITALS: BP 160/72
[~2021-05-31] MED LIST changes: +BROM5DRO3 OU; +LOTE2.8D OU; +MAGN400T48 PO; +MOXI3DRO11 OU; +POTA-121 PO; +TIZA-75 PO
--- NOTE | 2021-05-31 16:59 | CARD ---
MR#: [id number] Date of Study: 05/31/2021 Ordering Physician: LOKESH HERRERA, Referring Physician: LOKESH HERRERA, Tech: Roshni Castro [facility] APPROVED REPORT EXAM: Two-dimensional and M-mode echocardiogram with Doppler and color Doppler. Other Information Quality : Technically LimitedHR: 68bpm Rhythm : NSR INDICATION Palpitations RISK FACTORS Hypertension Obesity Hyperlipidemia Diabetes 2D DIMENSIONS RVDd3.7 (2.9-3.5cm)Left Atrium(2D)3.0 (1.6-4.0cm) IVSd1.2 (0.7-1.1cm)Aortic Root(2D)3.3 (2.0-3.7cm) LVDd5.7 (3.9-5.9cm)LVOT Diameter2.4 (1.8-2.4cm) PWd1.4 (0.7-1.1cm)LVDs4.2 (2.5-4.0cm) FS (%) 26.8 %SV83.9 ml LVEF(%)51.6 (>50%) Aortic Valve AoV Peak Brent.162.6cm/sAoV VTI39.5cm AO Peak GR.10.6mmHgLVOT Peak Brent.101.5cm/s AO Mean GR.6mmHgAVA (VMAX)2.75cm2 Mitral Valve MV E Cycgiydv132.0cm/sMV DECEL [id number] MV A Qvuiverz235.5cm/sE/A Ratio1.0 Tricuspid Valve TR P. Ouykowbx471cc/sTR Peak Gr.6mmHg LEFT VENTRICLE The Left Ventricle is mildly dilated. There is mild concentric left ventricular hypertrophy. The syst olic function is mildly impaired. EF 45% There is global hypokinesis of the left ventricle. Transmitr al Doppler flow pattern is Grade II-pseudonormal filling dynamics. RIGHT VENTRICLE The right ventricle is normal size. There is normal right ventricular wall thickness. The right ventr icular systolic function is normal. ATRIA The left atrium size is normal. The right atrium size is normal. The interatrial septum is intact wit h no evidence for an atrial septal defect or patent foramen ovale as noted on 2-D or Doppler imaging. AORTIC VALVE The aortic valve is normal in structure and function. Doppler and Color Flow revealed no significant aortic regurgitation. There is no significant aortic valvular stenosis. MITRAL VALVE The mitral valve is normal in structure and function. There is no evidence of mitral valve prolapse. There is no mitral valve stenosis. Doppler and Color-flow revealed mild mitral regurgitation. TRICUSPID VALVE The tricuspid valve is normal in structure and function. Doppler and Color Flow revealed no tricuspid valve regurgitation noted. There is no tricuspid valve stenosis. PULMONIC VALVE Doppler and Color Flow revealed no pulmonic valvular regurgitation. There is no pulmonic valvular yareli nosis. GREAT VESSELS The aortic root is normal in size. The ascending aorta is normal in size. The IVC is normal in size a nd collapses >50% with inspiration. PERICARDIAL EFFUSION There is no evidence of significant pericardial effusion. Critical Notification Critical Value: No <Conclusion> The systolic function is mildly impaired. EF 45% There is global hypokinesis of the left ventricle. Signed by : Real Francis, Electronically Approved : 05/31/2021 16:58:46
== END ==
LOC: ECHO 12:33
PROVIDERS: ATTEND Internal Medicine Cardiovascular Disease
DX: I34.0 Nonrheumatic mitral (valve) insufficiency (principal); I51.7 Cardiomegaly; I95.9 Hypotension, unspecified
CPT/HCPCS: 93306; C8929